=== PATIENT | female | born 1975 | race Caucasian/White ===

== ENCOUNTER 2017-11-08 12:59 | Emergency (ER) | payer OTHER ==
[~2017-11-08] VITALS: Ht 149.9 cm; Wt 62.6 kg
[~2017-11-08 12:59] MED LIST: IBUPROFEN600 MG ORAL; NKM; NORCO 5-325 TA1 EAC1 ORAL
[2017-11-08 13:16] VITALS: BP 118/76
--- NOTE | 2017-11-08 13:48 | Emergency Room Report ---
History of Present Illness General Chief Complaint: Upper Extremity Injury Source: Patient Present Illness HPI 42 yo female patient presents to ER complaining of left elbow pain for the past 2-3 days. Patient states she is unable to extend elbow completely secondary to pain; states unable to "take out earring". Patient reports "stinging pain" when rotating forearm. Patient denies history of acute trauma to elbow. Patient reports history of elbow injury 15 years ago. Patient denies work with resting elbow on hard surface. Patient denies hx of OCP. Denies hx of fever, chest pain, SOB, calf swelling. Allergies: Coded Allergies: No Known Allergies (Unverified , 05/11/16) Patient History Past Medical History: see triage record Last Menstrual Period: 10/13/17 Reviewed Nursing Documentation: PMH: Agreed, PSxH: Agreed Nursing Documentation-PMH Past Medical History: No Stated History Review of Systems All Other Systems: negative except mentioned in HPI Physical Exam Vital Signs Date Time Temp Pulse Resp B/P (MAP) Pulse Ox O2 Delivery O2 Flow Rate FiO2 11/08/17 13:04 97.9 68 18 118/76 99 Room Air 97.9 Sp02 EP Interpretation: reviewed, normal General Appearance: well appearing, no apparent distress, alert, GCS 15, non- toxic Head: normocephalic, atraumatic Eyes: bilateral eye normal inspection, bilateral eye PERRL, bilateral eye EOMI Neck: full range of motion Respiratory: normal inspection, lungs clear, normal breath sounds, no rhonchi, no respiratory distress, no retraction, no accessory muscle use, no wheezing, speaking full sentences Cardiovascular #1: regular rate, rhythm, no gallop, no murmur, no rub Cardiovascular #2: 2+ radial (R), 2+ radial (L) Musculoskeletal: back normal, digits/nails normal, gait/station normal, normal range of motion, no calf tenderness, swelling - mild swelling left elbow, other - NVI; no erythema, no edema, no ecchymosis, no warmth to touch; pain proximal to elbow with supination, pronation of forearm, tender - medial arm proximal to elbow Neurologic: alert, oriented x3, responsive, motor strength/tone normal, normal gait Psychiatric: mood/affect normal Skin: no rash Medical Decision Making PA Attestation Dr. Estrada and Dr. Bowens are my supervising Physician whom patient management has been discussed with. Diagnostic Impression: Primary Impression: Elbow pain ER Course Pt. presents to the ED c/o left elbow pain. Ddx considered but are not limited to fracture, sprain, strain, contusion, bursitis, DVT. Vital signs: are WNL, pt. is afebrile Patient able to touch ear with left hand on physical exam. ER COURSE: Patient resting comfortably in no acute distress. Patient requesting MRI for treatment of elbow. Patient informed MRI is not performed in ER; patient repeatedly requesting MRI and to speak with supervising physician. Patient was seen and evaluated by Dr. Estrada; discussed treatment; agreed to order US of left arm to r/o DVT. Ordered x-ray of left elbow to rule out fracture. An X-ray of the left arm was ordered, results show no acute fracture per the preliminary reading. US of left arm shows no DVT, possible joint effusion. Results discussed with patient. Patient declined sling for arm; states she does not want to have arm "lockup" from inactivity. Patient instructed on proper treatment for likely bursitis with RICE method and Ibuprofen. Followup with primary care for MRI. Discussed results of imaging with Dr. Bowens; agrees to treatment plan. DISCHARGE: -Rx provided for Ibuprofen for pain symptoms. At this time pt. is stable for d/c to home. Patient provided with CD of US and xray results. Will provide printed patient care instructions, and any necessary prescriptions. Patient instructed to follow with primary care provider in 3 - 5 days for further treatment and referral as needed; discuss MRI imaging at that time. Care plan and follow up instructions have been discussed with the patient prior to discharge. Patient instructed on RICE method: rest, ice, compression, elevation. Patient instructed to WBAT. Take medications as directed. Patient questions asked and answered. Patient reports understanding and agreement to treatment plan. ER precautions given, patient instructed to return to ER immediately for any new or worsening of symptoms. Other X-Ray Diagnostic Results Other X-Ray Diagnostic Results : X-Ray ordered: left elbow Indication: Pain EP Interpretation: Yes PA Xray: Interpretation reviewed, by supervising MD, and agrees with findings. Interpretation: no dislocation, no soft tissue swelling, no fractures Impression: Other - Joint effusion; degenerative changes; No definite acute bony trauma. Cannot r/o occult fracture; repeat x-ray in 7-10 days. PA Scribe Text Arsen Posey PA-C CT/MRI/US Diagnostic Results CT/MRI/US Diagnostic Results : Imaging Test Ordered: US left humerus Impression Anterior and posterior fluid collections, likely not definitively intra-articular and therefore likely representing a joint effusion. Appearance nonspecific as regards whether this is infected or sterile Last Vital Signs Date Time Temp Pulse Resp B/P (MAP) Pulse Ox O2 Delivery O2 Flow Rate FiO2 11/08/17 13:16 97.9 18 118/76 99 Room Air 97.9 11/08/17 13:04 68 Disposition: HOME, SELF-CARE Condition: Stable Scripts Ibuprofen* (MOTRIN*) 600 Mg Tablet 600 MG ORAL Q8H Y for For Pain, #30 TAB 0 Refills Prov: Erick Posey 11/08/17 Referrals: Miles MARCIAL,REFERRING (PCP) Patient Instructions: Elbow Bursitis, [id number] Additional Instructions: Followup with primary care provider in 3 -5 days for further treatment and referral. Can request MRI from primary care provider. Take medications as directed. Patient questions asked and answered. ER precautions given, patient instructed to return to ER immediately for any new or worsening of symptoms. Erick Posey Nov 08, 2017 13:48
--- NOTE | 2017-11-08 14:48 | Diagnostic Imaging Report ---
Indication: Left upper extremity swelling and pain Technique: Grayscale and duplex images of the left elbow Comparison: none Findings: A 14 x 14 mm fluid collection is seen at the posterior aspect of the left elbow. Uncertain as to whether this is intra-articular or extra-articular, but favor the latter given the apparent proximity to the bone. Smaller 7 x 5 mm fluid collection is seen anteriorly, as well as suggestion of a crescentic collection of fluid surrounding the bone. Impression: Anterior and posterior fluid collections, likely not definitively intra-articular and therefore likely representing a joint effusion. Appearance nonspecific as regards whether this is infected or sterile
[2017-11-08] MEDS ORDERED: IBUPROFEN600 MG ORAL (15:15)
--- NOTE | 2017-11-08 15:54 | Diagnostic Imaging Report ---
Indications:Elbow pain Technique: Three or 4 views of the left elbow Comparison: Reference made to ultrasound performed one half hour earlier Findings: Elevation of the posterior fat pad confirms presence of joint effusion described on earlier ultrasound. There are degenerative proliferative changes of the distal humerus and of the proximal radius as well as mild narrowing of the elbow joint. Possible detached osteophytes versus intra-articular loose bodies are seen at the junction of the lateral humeral condyle and epicondyle No definite acute fractures. No dislocations. Impression: Joint effusion Degenerative changes, as described No definite acute bony trauma. However, given the presence of joint effusion, the possibility of occult fracture should be considered, and if there is history of trauma consideration for repeat radiographs in 7-10 days
[2017-11-08 16:14] VITALS: BP 118/76
--- NOTE | 2017-11-08 21:48 | Emergency Room Report ---
Physical Exam Vital Signs Date Time Temp Pulse Resp B/P (MAP) Pulse Ox O2 Delivery O2 Flow Rate FiO2 11/08/17 13:04 97.9 68 18 118/76 99 Room Air 97.9 Medical Decision Making Diagnostic Impression: Primary Impression: Elbow pain ER Course Patient discussed with me by PA Reviewed xray and no acute trauma identified on my review Patient had NO acute trauma - per HPI, patient fell on elbow 15 years ago, with insidious onset of pain 3 days ago After patient DCed, official radiology report indicates posterior fat pad d/t joint effusion. Radiologist questioned occult fracture, however there was NO recent trauma Effusion on xray, sono likely d/t bursitis of joint from seen osteophytes, degenerative changes Patient refused sling which was offered Patient advised GLORIA, Rx Motrin, followup with PMD for possible Ortho referral Last Vital Signs Date Time Temp Pulse Resp B/P (MAP) Pulse Ox O2 Delivery O2 Flow Rate FiO2 11/08/17 16:14 97.9 18 118/76 99 Room Air 97.9 11/08/17 13:04 68 Disposition: HOME, SELF-CARE Condition: Stable Scripts Ibuprofen* (MOTRIN*) 600 Mg Tablet 600 MG ORAL Q8H Y for For Pain, #30 TAB 0 Refills Prov: Erick Posey 11/08/17 Referrals: Miles MARCIAL,REFERRING (PCP) Patient Instructions: Elbow Bursitis, [id number] Additional Instructions: Followup with primary care provider in 3 -5 days for further treatment and referral. Can request MRI from primary care provider. Rest, Ice, Elevation of elbow. Perform ROM exercises to prevent elbow from locking. Provided with CD of imaging. Take medications as directed. Patient questions asked and answered. ER precautions given, patient instructed to return to ER immediately for any new or worsening of symptoms. TACOS GAR M.D. Nov 08, 2017 21:47
== END 2017-11-08 16:16 | disposition home or self-care (01) ==
LOC: EMR 13:45
DX: M25.522 Pain in left elbow (principal)
CPT/HCPCS: 99283

== ENCOUNTER 2019-03-16 20:26 | Emergency (ER) | payer OTHER ==
[~2019-03-16] VITALS: Ht 154.9 cm; Wt 59.0 kg
[2019-03-16 20:34] VITALS: BP 112/68
--- NOTE | 2019-03-16 20:40 | NUR ---
ED Nurse Note: Pt arrived ambulatory into ED s/p fall that occurred on Saturday. Pt states she has LLL weakness due to trauma that occurred on extremity in 2016. Since then, pt falls more frequently. Pt states most frequent fall occurred walking down the stairs. RLE was injured, with lesion on knee. Pt complains of pain of 7/10, aching, non-radiating. No swelling noted.
--- NOTE | 2019-03-16 21:17 | Emergency Room Report ---
History of Present Illness General Chief Complaint: Multiple Trauma/Fall Source: Patient Present Illness HPI This is a 43-year-old female with no past medical history. She presents with chief complaint of right knee pain. She was walking and she said her right knee locked up and she fell directly onto her knee. This occurred 2 to 3 days ago. Now with tenderness. Able to walk but hurts. She has some abrasion to need worried may be infected. No nausea no vomiting. No fever chills. Pain is 8 out of 10. Walking. Better with rest. Allergies: Coded Allergies: No Known Allergies (Unverified , 05/11/16) Patient History Past Medical History: see triage record, old chart reviewed Past Surgical History: none Pertinent Family History: none Social History: Denies: smoking Last Menstrual Period: 02/21/19 Now: No : 0 Para: 0 Immunizations: other Reviewed Nursing Documentation: PMH: Agreed; PSxH: Agreed Nursing Documentation-PMH Past Medical History: No History, Except For Hx Neurological Problems: Yes - MUSCLE TEAR AND WEAKNESS Review of Systems Eye: Denies: eye pain, blurred vision ENT: Denies: ear pain, nose congestion, throat swelling Respiratory: Denies: cough, shortness of breath Cardiovascular: Denies: chest pain, palpitations Gastrointestinal: Denies: abdominal pain, diarrhea, nausea, vomiting Musculoskeletal: Reports: joint pain; Denies: back pain Skin: Denies: rash Neurological: Denies: headache, numbness Endocrine: Denies: increased thirst, increased urine Hematologic/Lymphatic: Denies: easy bruising All Other Systems: negative except mentioned in HPI Physical Exam Vital Signs Date Time Temp Pulse Resp B/P (MAP) Pulse Ox O2 Delivery O2 Flow Rate FiO2 03/16/19 20:33 98.2 68 16 112/68 (83) 100 Room Air Vitals normal Sp02 EP Interpretation: reviewed, normal General Appearance: well appearing, no apparent distress, alert Head: normocephalic, atraumatic Eyes: bilateral eye PERRL, bilateral eye EOMI ENT: hearing grossly normal, normal pharynx Neck: full range of motion, supple, no meningismus Respiratory: chest non-tender, lungs clear, normal breath sounds Cardiovascular #1: regular rate, rhythm, no murmur Gastrointestinal: normal bowel sounds, non tender, no mass, no organomegaly, no bruit, non-distended Musculoskeletal: back normal, normal range of motion, other - Abrasion over the patella of the right. Tender to palpation. Full range of motion. Knee stable. Psychiatric: mood/affect normal Skin: warm/dry Medical Decision Making Diagnostic Impression: Primary Impression: Abrasion of knee, right Qualified Codes: S80.211A - Abrasion, right knee, initial encounter ER Course Patient presents with trauma to right knee. No fracture dislocation. Not infected. Will discharge home. Other X-Ray Diagnostic Results Other X-Ray Diagnostic Results : X-Ray ordered: Right knee x-rays # of Views/Limited Vs Complete: 4 View Indication: Pain EP Interpretation: Yes Interpretation: no dislocation, no soft tissue swelling, no fractures Impression: No acute disease Electronically Signed by: Yoel Mcintyre MD Last Vital Signs Date Time Temp Pulse Resp B/P (MAP) Pulse Ox O2 Delivery O2 Flow Rate FiO2 03/16/19 20:34 98.2 86 16 112/68 100 Room Air Status: improved Disposition: HOME, SELF-CARE Condition: Stable Scripts Ibuprofen* (MOTRIN*) 600 Mg Tablet 600 MG ORAL THREE TIMES A DAY, #30 TAB 0 Refills Prov: Yoel Mcintyre MD 03/16/19 Mupirocin* (MUPIROCIN*) 22 Gm Oint...g. 1 APPLIC TOPIC THREE TIMES A DAY, #22 GM Prov: Yoel Mcintyre MD 03/16/19 Additional Instructions: Follow up with your doctor in 7 days. Return if worse. Yoel Mcintyre MD Mar 16, 2019 21:17
--- NOTE | 2019-03-16 21:30 | NUR ---
ED Nurse Note: Radiology @ bedside
[2019-03-16] MEDS ORDERED: MUPIROCIN22 GM TOPIC (21:39)
[2019-03-16] MEDS ORDERED: IBUPROFEN600 MG ORAL (21:39)
[2019-03-16] MEDS ORDERED: Bacitracin Oint UD TOPIC ONE (21:45)
--- NOTE | 2019-03-16 21:46 | NUR ---
ED Nurse Note: Pt cleared by MD. Discharge paperwork and prescriptions provided. ID band removed. All belongings taken with patient. Pt accompanied by significant other. Ambulatory with steady gait. VSS
[2019-03-16 21:47] VITALS: BP 137/67
--- NOTE | 2019-03-17 12:45 | Diagnostic Imaging Report ---
Indication: Pain Knee pain/trauma 3 views of the right knee were obtained. Findings: No acute fracture, malalignment, or joint effusion are identified. Joint space is relatively well-maintained. Impression: Negative for acute findings.
== END 2019-03-16 21:45 | disposition home or self-care (01) ==
LOC: EMR 21:06
DX: S80.211A Abrasion, right knee, initial encounter (principal); W19.XXXA Unspecified fall, initial encounter; Y92.9 Unspecified place or not applicable
CPT/HCPCS: 99283

== ENCOUNTER 2020-03-11 11:57 | Emergency (ER) | payer OTHER ==
[~2020-03-11] VITALS: Ht 149.9 cm; Wt 59.0 kg
[~2020-03-11 11:57] MED LIST changes: +MUPIROCIN22 GM TOPIC
--- NOTE | 2020-03-11 13:55 | Diagnostic Imaging Report ---
Indication: Foot pain Technique: XRAY Foot Complete R Comparison: None Findings: Bone mineralization within normal limits. No acute fracture is identified. Lisfranc alignment of the foot is maintained. Joint spaces are maintained. There is no bony erosion. No radiopaque foreign body. Impression: No acute fracture or dislocation.
[2020-03-11] MEDS ORDERED: IBUPROFEN600 M1 ORAL (14:05)
[2020-03-11 14:10] VITALS: BP 118/76
--- NOTE | 2020-03-12 16:39 | Emergency Room Report ---
History of Present Illness General Chief Complaint: Lower Extremity Injury Source: Patient Present Illness HPI 44-year-old female presents complaining of right foot pain. Starts that she may have broken her foot. Cannot recall a specific event but states it is painful to walk. Started a few days ago. Notes pain near her small toe. Throbbing, 9 out of 10, nonradiating. Denies any other injuries. No other aggravating relieving factors. Denies any other associated symptoms Allergies: Coded Allergies: No Known Allergies (Unverified , 05/11/16) COVID-19 Screening Contact w/high risk pt: No Recent Travel to affected area: No Experienced COVID-19 symptoms?: No COVID-19 Testing performed DRUM PULLER: No Patient History Past Medical History: none Past Surgical History: none Pertinent Family History: none Social History: Denies: smoking, alcohol use, drug use Last Menstrual Period: February 29, 2020 Now: No Immunizations: UTD Reviewed Nursing Documentation: PMH: Agreed; PSxH: Agreed Nursing Documentation-PMH Past Medical History: No Stated History Hx Neurological Problems: Yes - MUSCLE TEAR AND WEAKNESS Review of Systems All Other Systems: negative except mentioned in HPI Physical Exam Vital Signs Date Time Temp Pulse Resp B/P (MAP) Pulse Ox O2 Delivery O2 Flow Rate FiO2 03/11/20 12:26 98.1 74 18 115/74 (88) 97 Room Air Sp02 EP Interpretation: reviewed, normal General Appearance: no apparent distress, alert, GCS 15, non-toxic Head: normocephalic Eyes: bilateral eye normal inspection, bilateral eye PERRL ENT: normal ENT inspection Neck: normal inspection Respiratory: normal inspection Cardiovascular #1: normal inspection Gastrointestinal: normal inspection Rectal: deferred Genitourinary: no CVA tenderness Musculoskeletal: tender - R foot Neurologic: alert, motor strength/tone normal, oriented x3, sensory intact, responsive, speech normal Psychiatric: normal inspection Skin: no rash Lymphatic: normal inspection Procedures Splinting Splinting : Consent: Verbal Splint: cast shoe Pre-Proc Neuro Vasc Exam: normal Post-Proc Neuro Vasc Exam: normal Patient Tolerated: Well Complications: None Medical Decision Making Diagnostic Impression: Primary Impression: Foot contusion Qualified Codes: S90.31XA - Contusion of right foot, initial encounter ER Course Hospital Course 44 yo F presents with R foot pain Differential diagnoses include: Fracture, dislocation, sprain, contusion Clinical course Patient placed on stretcher. After initial history and physical, I ordered right foot. Patient declined pain meds Xrays read shows no acute fracture/dislocation. Discussed findings with patient. Likely soft tissue contusion. Placed in cast shoe. Safe for discharge with close outpatient follow-up. Diagnosis -foot contusion Stable and discharged to home with prescription for Motrin. apply ice, keep elevated. weight bear as tolerated. Followup with PMD. Return to ED if symptoms recur or worsen Other X-Ray Diagnostic Results Other X-Ray Diagnostic Results : X-Ray ordered: R foot # of Views/Limited Vs Complete: 3 View Indication: Pain EP Interpretation: Yes Interpretation: no dislocation, no soft tissue swelling, no fractures Impression: No acute disease Electronically Signed by: Electronically signed by Milo Marquez MD Last Vital Signs Date Time Temp Pulse Resp B/P (MAP) Pulse Ox O2 Delivery O2 Flow Rate FiO2 03/11/20 14:10 98.1 71 20 118/76 98 Room Air Status: improved Disposition: HOME, SELF-CARE Condition: Stable Scripts Ibuprofen* (MOTRIN*) 600 Mg Tablet 600 MG ORAL Q8H PRN for FOR PAIN, #30 TAB 0 Refills Prov: Milo Marquez MD 03/11/20 Patient Instructions: Foot Contusion Milo Marquez MD Mar 12, 2020 16:39
== END 2020-03-11 14:10 | disposition home or self-care (01) ==
LOC: EMR 12:44
DX: S90.31XA Contusion of right foot, initial encounter (principal); X58.XXXA Exposure to other specified factors, initial encounter; Y93.9 Activity, unspecified; Y92.9 Unspecified place or not applicable
CPT/HCPCS: 29515; 99283

== ENCOUNTER 2020-05-17 19:47 | Emergency (ER) | payer OTHER ==
[~2020-05-17] VITALS: Ht 149.9 cm; Wt 59.9 kg
[~2020-05-17 19:47] MED LIST changes: +IBUPROFEN600 M1 ORAL
[2020-05-17 19:50] VITALS: BP 110/69
--- NOTE | 2020-05-17 20:20 | Emergency Room Report ---
History of Present Illness General Chief Complaint: Left elbow pain Source: Patient Present Illness HPI Disclaimer: Please note that this report is being documented using [employer] technology. This can lead to erroneous entry secondary to incorrect interpretation by the dictating instrument. HPI: 44-year-old female presents for evaluation of left elbow pain. Reports pain with extension and flexion at the elbow particularly over the head of the radius. Cannot recall specific injury. 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 Does not believe it is getting bigger. She is reporting swelling around the elbow that is improving with rest and Motrin. Denies numbness or tingling or weakness. PMH: Reviewed PSH: Reviewed Allergies: Reviewed Social Hx: Reviewed Allergies: Coded Allergies: No Known Allergies (Unverified , 05/11/16) COVID-19 Screening Contact w/high risk pt: No Recent Travel to affected area: No Experienced COVID-19 symptoms?: No Nursing Documentation-PMH Hx Neurological Problems: Yes - MUSCLE TEAR AND WEAKNESS Review of Systems All Other Systems: negative except mentioned in HPI Physical Exam Vital Signs Date Time Temp Pulse Resp B/P (MAP) Pulse Ox O2 Delivery O2 Flow Rate FiO2 05/17/20 19:50 97.5 77 18 110/69 (83) 99 Room Air General: Awake and alert, no acute distress HEENT: NC/AT. EOMI. Resp: Normal work of breathing Skin: Intact. No abrasions, laceration or rash over the exposed skin MSK: Normal tone and bulk. Moving all extremities. No obvious deformity. There is a slight soft tissue swelling over the medial aspect of the left elbow over the head of the ulna. Nontender, no overlying skin changes. No effusions otherwise. Able to actively and passively fully range the left elbow though there is some pain on full extension and full flexion. Able to pronate and supinate without difficulty. Neuro: Awake and alert. Mentating appropriately Medical Decision Making Diagnostic Impression: Primary Impression: Elbow pain Additional Impression: Cyst ER Course Is a 44-year-old female presenting for evaluation of atraumatic left elbow pain. Appears to be an acute on chronic issue. The patient has had a cyst over the left elbow for the past 20 years but now states it is bothering her more. A bedside ultrasound was performed by me showing a small fluid collection but not a drainable abscess at this time. X-ray was also obtained to evaluate for fracture dislocation however no acute fracture was identified. I did see some fragments of bone possibly from an old injury now healed or signs of osteoarthritis. I discussed these findings with the patient and provided copies of x-ray interpretations. She will be continued on ibuprofen and follow-up with orthopedic surgery. She agrees with this treatment plan. Other X-Ray Diagnostic Results Other X-Ray Diagnostic Results : X-Ray ordered: Left elbow # of Views/Limited Vs Complete: Complete Indication: Pain EP Interpretation: Yes Interpretation: no dislocation, no soft tissue swelling, no fractures, other - Ossified fragments either previous injury or osteoarthritis Impression: No acute disease Electronically Signed by: Electronically signed by Dr. Alex Severino Disposition: HOME, SELF-CARE Condition: Stable Scripts Ibuprofen* (MOTRIN*) 600 Mg Tablet 600 MG ORAL Q8H PRN for FOR PAIN, #30 TAB 0 Refills Prov: Alex Severino MD 05/17/20 Alex Severino MD May 17, 2020 20:20
[2020-05-17] MEDS ORDERED: IBUPROFEN600 M1 ORAL (21:26)
--- NOTE | 2020-05-17 21:41 | Diagnostic Imaging Report ---
EXAM: XR Left Elbow Complete, 3 or More Views CLINICAL HISTORY: INJ TECHNIQUE: Frontal, lateral and oblique views of the left elbow. COMPARISON: No relevant prior studies available. FINDINGS: Bones/joints: No acute fracture. Degenerative changes. Soft tissues: No radiodense foreign body. IMPRESSION: No acute fracture.
[2020-05-17 22:14] VITALS: BP 119/72
== END 2020-05-17 22:14 | disposition home or self-care (01) ==
LOC: EMR 20:39
DX: M25.522 Pain in left elbow (principal); L72.9 Follicular cyst of the skin and subcutaneous tissue, unspecified
CPT/HCPCS: 99283